=== PATIENT | female | born 1960 | race American Indian/Alaskan Native ===

== ENCOUNTER 2021-02-05 06:04 | Emergency (ER) | payer OTHER ==
[2021-02-05] MEDS ORDERED: dexAMETHasone 4 MG/ML VIAL IM ONE (08:10)
--- NOTE | 2021-02-05 08:25 | Emergency Department Report ---
ED General Adult HPI - General Chief complaint: Dental/Oral Stated complaint: RT SIDE FACIAL PAIN Time Seen by Provider: 02/05/21 07:41 Source: patient Mode of arrival: Ambulatory Limitations: No Limitations - History of Present Illness Initial comments: 60-year-old female presents to the emergency room complaining of right neck and right side facial pain. Patient reports a history of trigeminal neuralgia since 2014. She managed her flareups with carbamazepine and ibuprofen 800 mg. She took a dose at 4:30 AM but had no relief. She denies any recent falls or traumas. This is her usual trigeminal neuralgia pain. She is followed by a neurologist Dr. Bhatia. She denies chest pain, shortness of breath, fever, chills nausea vomiting. Patient is awake alert and in no apparent distress Location: face Severity scale (0 -10): 10 Consistency: constant Improves with: none Worsens with: none Associated Symptoms: denies other symptoms. denies: confusion, chest pain, cough, diaphoresis, fever/chills, headaches, loss of appetite, malaise, nausea/vomiting, rash, seizure, shortness of breath, syncope, weakness Treatments Prior to Arrival: other (MOTRIN 800MG AND CARBAMAZAPINE) - Related Data Previous Rx's Medication Instructions Recorded Last Taken Type Ibuprofen [Motrin] 800 mg PO Q8HR PRN #21 tablet 02/05/21 Unknown Rx Allergies Allergy/AdvReac Type Severity Reaction Status Date / Time amoxicillin Allergy Itching Verified 02/05/21 07:08 ED Review of Systems ROS: Stated complaint: RT SIDE FACIAL PAIN Other details as noted in HPI ED Past Medical Hx - Past Medical History Hx Hypertension: Yes Additional medical history: thyroid/ back pain/ reflux - Surgical History Additional Surgical History: tubal/ parital hysto - Medications Home Medications: Home Medications Medication Instructions Recorded Confirmed Last Taken Type Ibuprofen [Motrin] 800 mg PO Q8HR PRN #21 tablet 02/05/21 Unknown Rx ED Physical Exam - General Limitations: No Limitations General appearance: alert, in no apparent distress - Head Head exam: Present: atraumatic, normal inspection, other (No facial swelling no bruising no facial tenderness with palpation) - Eye Eye exam: Present: normal appearance, PERRL, EOMI. Absent: periorbital swelling - ENT ENT exam: Present: normal exam, mucous membranes moist, TM's normal bilaterally, other - Neck Neck exam: Present: normal inspection, full ROM. Absent: tenderness, lymphadenopathy - Respiratory Respiratory exam: Present: normal lung sounds bilaterally (No trismus). Absent: respiratory distress, wheezes, rales, rhonchi, stridor - Cardiovascular Cardiovascular Exam: Present: regular rate, normal heart sounds - Extremities Exam Extremities exam: Present: normal inspection, full ROM, normal capillary refill - Back Exam Back exam: Present: normal inspection - Neurological Exam Neurological exam: Present: alert, oriented X3, normal gait. Absent: motor sensory deficit - Psychiatric Psychiatric exam: Present: normal affect - Skin Skin exam: Present: warm, dry, intact ED Course Vital Signs 02/05/21 02/05/21 07:13 09:26 Temperature 98.4 F Pulse Rate 63 80 Respiratory 18 16 Rate Blood Pressure 135/79 Blood Pressure 134/70 [Left] O2 Sat by Pulse 100 100 Oximetry - Reevaluation(s) Reevaluation #1: 02/05/21 08:33 Ms. Gutierrez refuses tramadol states that that does not usually work for her when her pain gets this severe. Morphine 4 mg IM ordered instead of tramadol ED Medical Decision Making - Medical Decision Making This is a 60-year-old female with a history of trigeminal neuralgia since 2014 she presents documentation of her diagnosis. She is currently being treated by neurologist Dr. Bhatia. Patient is awake alert and oriented she has no neurological deficits. Right facial and right neck pain started at 4:30 AM this morning she took carbamazepine and ibuprofen 800 mg at home with no relief. She denies any recent falls or trauma. She denies chest pain no shortness of breath no upper respiratory symptoms. Normal exam. Patient states her pain is usually relieved with a dose of steroid and pain medication. She is medicated in the emergency room with morphine 4 mg IM 1 dose and Decadron 8 mg IM with relief. Patient states she has enough carbamazepine at home to take but needs a refill on Motrin 800. Critical Care Time: No Critical care attestation.: If time is entered above; I have spent that time in minutes in the direct care of this critically ill patient, excluding procedure time. ED Disposition Clinical Impression: Facial pain syndrome Disposition: - TO HOME OR SELFCARE Is pt being admited?: No Does the pt Need Aspirin: No Condition: Stable Instructions: Trigeminal Neuralgia Additional Instructions: Please follow-up with your neurologist as soon as possible. Continue with carbamazepine and ibuprofen 800 mg as prescribed for pain management. Return to the emergency room for any worsening symptoms such as inability to move your neck worsening pain chest pain shortness of breath Prescriptions: Ibuprofen [Motrin] 800 mg PO Q8HR PRN #21 tablet PRN Reason: Pain , Severe (7-10) Referrals: PRIMARY CARE, [Primary Care Provider] - 3-5 Days Forms: Work/School Release Form(ED) Time of Disposition: 09:04
[2021-02-05] MEDS: traMADol 50 MG TAB PO ONE ×2 (08:26→08:31)
[2021-02-05] MEDS ORDERED: MORPHINE 4 MG/1 ML INJ IM ONE (08:33)
[2021-02-05 09:27] VITALS: BP 134/70
== END 2021-02-05 09:27 | disposition home or self-care (01) ==
LOC: ED 06:04
DX: G50.0 Trigeminal neuralgia (principal); M54.2 Cervicalgia; I10 Essential (primary) hypertension; Z98.51 Tubal ligation status; Z88.1 Allergy status to other antibiotic agents; Z79.899 Other long term (current) drug therapy
CPT/HCPCS: 96372; 99282; J1100; J2270

== ENCOUNTER 2021-04-06 05:09 | Emergency (ER) | payer OTHER ==
[2021-04-06 05:17] VITALS: BP 118/73
[2021-04-06] MEDS ORDERED: ACETAMINOPHEN 500 MG TAB PO ONE (05:49)
[2021-04-06] MEDS ORDERED: dexAMETHasone 20 MG/5 ML VIAL IM ONE (05:49)
[2021-04-06] MEDS ORDERED: traMADol 50 MG TAB PO ONE (05:49)
--- NOTE | 2021-04-06 05:55 | Emergency Department Report ---
ED General Adult HPI - General Chief complaint: Pain General Stated complaint: TRIGEMINAL NEURALGIA Time Seen by Provider: 04/06/21 05:48 Source: patient Mode of arrival: Ambulatory Limitations: No Limitations - History of Present Illness Initial comments: Patient 61-year-old female with a history of trigeminal neuralgia. Symptoms usually controlled by coryza pain p.o. twice daily and ibuprofen 800 as needed. This exacerbation since this a.m. She does have neurology follow-up for maintenance. Cannot see them for next 2 days from now. States pain is described as 510 right jaw pain radiating to TMJ. There is no lockjaw, patient is tolerating p.o. intake there is no nausea no vomiting no stridor. There is no fever no chills. Patient is HSV negative per patient. There is 3-4 breakthroughs annually. Usually relieved by IM steroids and NSAIDs. Patient appears well-nourished well-hydrated with no acute distress at this time. - Related Data Previous Rx's Medication Instructions Recorded Last Taken Type Ibuprofen [Motrin] 800 mg PO Q8HR PRN #21 tablet 02/05/21 Unknown Rx traMADoL [Ultram] 50 mg PO Q6HR PRN #12 tablet 04/06/21 Unknown Rx Allergies Allergy/AdvReac Type Severity Reaction Status Date / Time amoxicillin Allergy Itching Verified 02/05/21 07:08 ED Review of Systems ROS: Stated complaint: TRIGEMINAL NEURALGIA Other details as noted in HPI Constitutional: denies: chills, fever Eyes: denies: eye pain, eye discharge, vision change ENT: denies: ear pain, throat pain, dental pain, congestion Respiratory: denies: cough, shortness of breath, wheezing Cardiovascular: denies: chest pain, palpitations Endocrine: no symptoms reported Gastrointestinal: denies: abdominal pain, nausea, vomiting, diarrhea Genitourinary: denies: urgency, dysuria, discharge Musculoskeletal: denies: back pain, joint swelling, arthralgia Skin: denies: rash, lesions Neurological: denies: headache, weakness, paresthesias Psychiatric: denies: anxiety, depression Hematological/Lymphatic: denies: easy bleeding, easy bruising ED Past Medical Hx - Past Medical History Previous Medical History?: Yes Hx Hypertension: Yes Additional medical history: thyroid/ back pain/ reflux - Surgical History Past Surgical History?: Yes Additional Surgical History: tubal/ parital hysto - Medications Home Medications: Home Medications Medication Instructions Recorded Confirmed Last Taken Type Ibuprofen [Motrin] 800 mg PO Q8HR PRN #21 tablet 02/05/21 Unknown Rx traMADoL [Ultram] 50 mg PO Q6HR PRN #12 tablet 04/06/21 Unknown Rx ED Physical Exam - General Limitations: No Limitations General appearance: alert, in no apparent distress - Head Head exam: Present: normocephalic, normal inspection - Eye Eye exam: Present: normal appearance, PERRL, EOMI Pupils: Present: normal accommodation - ENT ENT exam: Present: normal orophraynx, mucous membranes moist, TM's normal bilaterally, normal external ear exam, other - Expanded ENT Exam Expanded Ear exam: Present: normal external inspection Mouth exam: Absent: trismus Teeth exam: Present: normal inspection Throat exam: Positive: normal inspection - Neck Neck exam: Present: normal inspection, full ROM. Absent: tenderness, meningismus, lymphadenopathy, thyromegaly - Expanded Neck Exam Expanded Neck exam: Absent: midline deformity, tracheal deviation - Respiratory Respiratory exam: Present: normal lung sounds bilaterally. Absent: wheezes, stridor, chest wall tenderness - Cardiovascular Cardiovascular Exam: Present: regular rate, normal rhythm, normal heart sounds. Absent: systolic murmur, diastolic murmur, rubs, gallop - GI/Abdominal GI/Abdominal exam: Present: soft, normal bowel sounds. Absent: distended, tenderness, bruit, hernia - Rectal Rectal exam: Present: deferred - Extremities Exam Extremities exam: Present: normal inspection, normal capillary refill. Absent: full ROM, tenderness - Back Exam Back exam: Present: normal inspection - Neurological Exam Neurological exam: Present: alert, oriented X3, CN II-XII intact, normal gait, reflexes normal. Absent: motor sensory deficit - Expanded Neurological Exam Expanded Patient oriented to: Present: person, place, time Speech: Present: fluid speech Cranial nerves: EOM's Intact: Normal, Gag Reflex: Normal, Tongue Deviation: Normal, Nystagmus: Normal, Facial Sensation: Normal Motor strength exam: RUE: 5, LUE: 5, RLE: 5, LLE: 5 Best Eye Response ([place]): (4) open spontaneously Best Motor Response ([place]): (6) obeys commands Best Verbal Response ([place]): (5) oriented Fannie Total: 15 - Psychiatric Psychiatric exam: Present: normal affect, normal mood - Skin Skin exam: Present: warm, dry, intact, normal color. Absent: rash ED Course Vital Signs 04/06/21 04/06/21 05:14 05:16 Temperature 98.1 F 98.1 F Pulse Rate 75 74 Respiratory 18 18 Rate Blood Pressure 135/65 118/73 O2 Sat by Pulse 98 99 Oximetry ED Medical Decision Making - Medical Decision Making Patient treated with Decadron, tramadol, Tylenol. Patient has in her physician prescription for carbamazepine and ibuprofen as prescribed by neurology. Patient will follow-up with urology today or tomorrow. There is no TMJ patient is articulating well problems, no facial drooping no paralysis no weakness. No chest pain or shortness of breath. She will be DC'd to self at this time. Follow-up with neurology as scheduled. Patient verbalized agreement and understanding with discharge plan Critical care attestation.: If time is entered above; I have spent that time in minutes in the direct care of this critically ill patient, excluding procedure time. ED Disposition Clinical Impression: Trigeminal neuralgia Disposition: 01 HOME / SELF CARE / HOMELESS Is pt being admited?: No Does the pt Need Aspirin: No Condition: Stable Instructions: Trigeminal Neuralgia Additional Instructions: Medications as prescribed, follow-up with your neurologist as scheduled. Call today for earlier appointment. Return to emergency should symptoms worsen. Prescriptions: traMADoL [Ultram] 50 mg PO Q6HR PRN #12 tablet PRN Reason: Pain Referrals: JAYLON ARRIAGA MD [Staff Physician] - 3-5 Days Forms: Work/School Release Form(ED) Time of Disposition: 06:08
== END 2021-04-06 06:10 | disposition home or self-care (01) ==
LOC: ED 05:09
DX: G50.0 Trigeminal neuralgia (principal); I10 Essential (primary) hypertension; Z98.890 Other specified postprocedural states; Z79.899 Other long term (current) drug therapy
CPT/HCPCS: 96372; 99282; J1100

== ENCOUNTER 2021-04-08 11:49 | Emergency (ER) | payer OTHER ==
[2021-04-08] MEDS ORDERED: ONDANSETRON 4 MG/2 ML INJ IM ONE (12:19)
[2021-04-08] MEDS ORDERED: MORPHINE 4 MG/1 ML INJ IM ONE (12:19)
--- NOTE | 2021-04-08 12:21 | Emergency Department Report ---
ED Neuro Deficit HPI - General Chief Complaint: Pain General Stated Complaint: TRIGEMINAL Time Seen by Provider: 04/08/21 12:10 Source: patient Mode of arrival: Ambulatory Limitations: No Limitations - History of Present Illness Initial Comments: The patient was evaluated in the emergency department for symptoms described in the history of present illness. He/she was evaluated in the context of the global COVID-19 pandemic, which necessitated consideration that the patient might be at risk for infection with the virus that causes COVID-19. Institut ional protocols and algorithms that pertain to the evaluation of patients at risk for COVID-19 are in a state of rapid change based on information released by regulatory bodies including the CDC and federal and state organizations. These policies and algorithms were followed during the patient's care in the emergency department. Please note that these policies, procedures and recommendations changed on a rapid basis. 61-year-old -[place] female presents to the emergency room stating her trigeminal neuralgia is flaring up. Patient states that she was seen here Sunday in the emergency room for the same complaint. Patient states that she was given a steroid shot and sent home on tramadol and told to take Tylenol. Patient states that this is her usual presentation of her trigeminal neuralgia. Patient denies any hearing loss and no swelling of her ear or redness. Patient does state that she is followed by neurologist Dr. Dez Bhatia. She denies any nausea no vomiting no chest pain or shortness of breath. She does report she is allergic to amoxicillin. She denies any recent trauma. Patient states she has an appointment next week with her neurologist. Location: right face History of same: Yes Severity: severe Quality: burning Improves With: none Worsens With: other On Anticoagulants: No Associated Symptoms: denies: chest pain, cough, diaphoresis, fever/chills, headaches, loss of appetite, nausea/vomiting, vertigo, seizures, shortness of breath, weakness - Related Data Home Medications: Previous Rx's Medication Instructions Recorded Last Taken Type Ibuprofen [Motrin] 800 mg PO Q8HR PRN #21 tablet 02/05/21 Unknown Rx traMADoL [Ultram] 50 mg PO Q6HR PRN #12 tablet 04/06/21 Unknown Rx Allergies/Adverse Reactions: Allergies Allergy/AdvReac Type Severity Reaction Status Date / Time amoxicillin Allergy Itching Verified 02/05/21 07:08 ED Review of Systems ROS: Stated complaint: TRIGEMINAL Other details as noted in HPI Comment: All other systems reviewed and negative ED Past Medical Hx - Past Medical History Hx Hypertension: Yes Additional medical history: thyroid/ back pain/ reflux - Surgical History Additional Surgical History: tubal/ parital hysto - Social History Smoking Status: Never Smoker Substance Use Type: None - Medications Home Medications: Home Medications Medication Instructions Recorded Confirmed Last Taken Type Ibuprofen [Motrin] 800 mg PO Q8HR PRN #21 tablet 02/05/21 Unknown Rx traMADoL [Ultram] 50 mg PO Q6HR PRN #12 tablet 04/06/21 Unknown Rx ED Neuro Physical Exam - General Limitations: No Limitations General appearance: alert, other (Appears to be uncomfortable) Suspected Stroke: No - Head Head exam: Present: atraumatic, normocephalic - Eye Eye exam: Present: normal appearance - ENT ENT exam: Present: mucous membranes moist - Neck Neck exam: Present: normal inspection, full ROM - Respiratory Respiratory exam: Absent: accessory muscle use - Cardiovascular Cardiovascular Exam: Present: regular rate - Extremities Exam Extremities exam: Present: normal inspection - Back Exam Back exam: Present: normal inspection - Neurological Exam Neurological exam: Present: alert, oriented X3, CN II-XII intact, normal gait - NIHSS Assessment Interval: Baseline 1a. Level of Consciousness: alert/keenly responsive 1b. LOC Questions: answers both correctly 1c. LOC Commands: performs tasks correctly 2. Best Gaze: normal 3. Visual: no visual loss 4. Facial Palsy: normal symmetrical movement 5b. Motor Arm Right: no drift 5a. Motor Arm Left: no drift 6a. Motor Leg Left: no drift 6b. Motor Leg Right: no drift 7. Limb Ataxia: absent 8. Sensory: normal 9. Best Language: no aphasia 10. Dysarthria: normal 11. Extinction/Inattention: no abnormality Total Score: 0 Stroke Severity: No Stroke Symptoms - Psychiatric Psychiatric exam: Present: normal affect, normal mood - Skin Skin exam: Present: warm, dry, intact, normal color. Absent: rash ED Course Vital Signs 04/08/21 04/08/21 11:54 12:15 Temperature 97.2 F L Pulse Rate 79 68 Respiratory 22 16 Rate Blood Pressure 181/121 143/82 O2 Sat by Pulse 98 100 Oximetry - Medical Decision Making 61-year-old -[place] female presents to the emergency room stating her trigeminal neuralgia is flaring up. Patient states that she was seen here Sunday in the emergency room for the same complaint. Patient states that she was given a steroid shot and sent home on tramadol and told to take Tylenol. Patient states that this is her usual presentation of her trigeminal neuralgia. Patient denies any hearing loss and no swelling of her ear or redness. Patient does state that she is followed by neurologist Dr. Dez Bhatia. She denies any nausea no vomiting no chest pain or shortness of breath. She does report she is allergic to amoxicillin. She denies any recent trauma. Patient states she has an appointment next week with her neurologist. Patient will be given morphine 4 mg IM and Zofran 4 mg IM. Patient is instructed to continue with her carbamazepine and her ibuprofen 800. Discussed with patient to try calling her neurologist to see if she can get in earlier. Critical care attestation.: If time is entered above; I have spent that time in minutes in the direct care of this critically ill patient, excluding procedure time. ED Disposition Clinical Impression: Trigeminal neuralgia Disposition: 01 HOME / SELF CARE / HOMELESS Is pt being admited?: No Does the pt Need Aspirin: No Condition: Stable Instructions: Trigeminal Neuralgia, Neuropathic Pain Additional Instructions: Please continue with your preventive pain your ibuprofen 800 and your tramadol. Call your neurologist and see if he can be seen earlier. Return back to the emergency room if any worsening or new symptoms. Referrals: Dez Barajas [Other] - 3-5 Days Forms: Work/School Release Form(ED) Time of Disposition: 12:38
[2021-04-08 13:12] VITALS: BP 134/73
== END 2021-04-08 13:12 | disposition home or self-care (01) ==
LOC: ED 11:49
DX: G50.0 Trigeminal neuralgia (principal); I10 Essential (primary) hypertension; Z88.1 Allergy status to other antibiotic agents; Z79.899 Other long term (current) drug therapy
CPT/HCPCS: 96372; 99282; J2270; J2405

== ENCOUNTER 2021-04-13 05:45 | Emergency (ER) | payer OTHER ==
[2021-04-13] MEDS ORDERED: BACLOFEN 10 MG TAB PO ONE (06:51)
[2021-04-13] MEDS ORDERED: oxyCODONE /ACETAMINOPHEN 5-325MG TAB PO ONE (06:51)
[2021-04-13] MEDS ORDERED: predniSONE 20 MG TAB PO ONE (06:53)
[2021-04-13] MEDS ORDERED: KETOROLAC 30 MG/1 ML INJ IM ONE (06:57)
--- NOTE | 2021-04-13 06:57 | Emergency Department Report ---
ED General Adult HPI - General Chief complaint: Neuro Symptoms/Deficit Stated complaint: TRIGEMINAL NEURALIA PUI?: No Time Seen by Provider: 04/13/21 06:42 Source: patient Mode of arrival: Ambulatory Limitations: No Limitations - History of Present Illness Initial comments: CC: "My face hurts." HPI: This is a 61 yo female with hx of trigeminal neuralgiaAnd thyroid disease who presents with right facial pain for 2 days. She has had similar pain intermittently since diagnosis of trigeminal neuralgia in 2014. She is followed by a PCP and neurologist. She takes carbamazepine and Ibuprofen to address her condition. IN the ED, she requires morphine and steroids for rescue therapy. -: Gradual Location: face (right face) Severity scale (0 -10): 10 Quality: sharp Consistency: constant Worsens with: other (worse when she speaks) Associated Symptoms: denies other symptoms Treatments Prior to Arrival: none - Related Data Previous Rx's Medication Instructions Recorded Last Taken Type Ibuprofen [Motrin] 800 mg PO Q8HR PRN #21 tablet 02/05/21 Unknown Rx traMADoL [Ultram] 50 mg PO Q6HR PRN #12 tablet 04/06/21 Unknown Rx Baclofen [Lioresal] 10 mg PO TID 7 Days #21 tab 04/13/21 Unknown Rx Prednisone [predniSONE 10 mg 10 mg PO .TAPER #1 tab.ds.pk 04/13/21 Unknown Rx (6-Day Pack, 21 Tabs)] Allergies Allergy/AdvReac Type Severity Reaction Status Date / Time amoxicillin Allergy Itching Verified 04/13/21 06:37 ED Review of Systems ROS: Stated complaint: TRIGEMINAL NEURALIA Other details as noted in HPI Comment: All other systems reviewed and negative Constitutional: denies: chills, diaphoresis, malaise ENT: denies: throat pain, dental pain Respiratory: denies: cough Cardiovascular: denies: chest pain Gastrointestinal: denies: abdominal pain, nausea, vomiting ED Past Medical Hx - Past Medical History Previous Medical History?: Yes Hx Hypertension: Yes Additional medical history: thyroid/ back pain/ reflux, trigeminal neuralgia - Surgical History Past Surgical History?: Yes Additional Surgical History: tubal/ parital hysto - Social History Smoking Status: Never Smoker Substance Use Type: None - Medications Home Medications: Home Medications Medication Instructions Recorded Confirmed Last Taken Type Ibuprofen [Motrin] 800 mg PO Q8HR PRN #21 tablet 02/05/21 Unknown Rx traMADoL [Ultram] 50 mg PO Q6HR PRN #12 tablet 04/06/21 Unknown Rx Baclofen [Lioresal] 10 mg PO TID 7 Days #21 tab 04/13/21 Unknown Rx Prednisone [predniSONE 10 mg 10 mg PO .TAPER #1 tab.ds.pk 04/13/21 Unknown Rx (6-Day Pack, 21 Tabs)] ED Physical Exam - General Limitations: No Limitations General appearance: alert, in no apparent distress, other (appears uncomfortable when attempting to speak) - Head Head exam: Present: atraumatic, normocephalic - Eye Eye exam: Present: normal appearance - ENT ENT exam: Present: mucous membranes moist - Neck Neck exam: Present: normal inspection - Respiratory Respiratory exam: Present: normal lung sounds bilaterally. Absent: respiratory distress, wheezes, rales, rhonchi - Cardiovascular Cardiovascular Exam: Present: regular rate, normal rhythm, normal heart sounds. Absent: systolic murmur, diastolic murmur, rubs, gallop - GI/Abdominal GI/Abdominal exam: Present: soft, normal bowel sounds - Extremities Exam Extremities exam: Present: normal inspection - Neurological Exam Neurological exam: Present: alert, oriented X3 - Psychiatric Psychiatric exam: Present: normal affect, normal mood - Skin Skin exam: Present: warm, dry, intact, normal color. Absent: rash ED Medical Decision Making - Medical Decision Making Is a 61-year-old female who has had recurrent right facial pain since 2014 due to trigeminal neuralgia. She received multiple medications in emergency department including p.o. prednisone p.o. baclofen p.o. Percocet, IM ketorolac. I'll prescribe prednisone and baclofen. Patient is recommended follow-up with her neurologist. This is her third ED encounter at this facility within the last week Critical care attestation.: If time is entered above; I have spent that time in minutes in the direct care of this critically ill patient, excluding procedure time. ED Disposition Clinical Impression: Trigeminal neuralgia Disposition: 01 HOME / SELF CARE / HOMELESS Is pt being admited?: No Does the pt Need Aspirin: No Condition: Stable Instructions: Trigeminal Neuralgia, Neuropathic Pain Additional Instructions: Please see your primary neurologist as soon as possible. Prescriptions: Baclofen [Lioresal] 10 mg PO TID 7 Days #21 tab Prednisone [predniSONE 10 mg (6-Day Pack, 21 Tabs)] 10 mg PO .TAPER #1 tab.ds.pk
[2021-04-13 07:00] VITALS: BP 121/74
== END 2021-04-13 07:35 | disposition home or self-care (01) ==
LOC: ED 05:45
DX: G50.0 Trigeminal neuralgia (principal); I10 Essential (primary) hypertension; Z98.890 Other specified postprocedural states; Z79.899 Other long term (current) drug therapy; Z88.1 Allergy status to other antibiotic agents
CPT/HCPCS: 96372; 99282; J1885; J7512

== ENCOUNTER 2021-04-30 05:37 | Emergency (ER) | payer OTHER ==
[2021-04-30 05:59] VITALS: BP 105/65
[2021-04-30] MEDS ORDERED: HYDROcodone/ACETAMINOPHEN 5-325 MG TAB PO ONE (07:45)
[2021-04-30] MEDS ORDERED: dexAMETHasone 20 MG/5 ML VIAL IM ONE (07:46)
--- NOTE | 2021-04-30 07:48 | Emergency Department Report ---
ED General Adult HPI - General Chief complaint: Pain General Stated complaint: TRIGEMINAL NEURALGIA Time Seen by Provider: 04/30/21 07:34 Source: patient Mode of arrival: Ambulatory Limitations: No Limitations - History of Present Illness Initial comments: 61-year-old female with a past medical history of thyroid disease and trigeminal neuralgia presents to the ER today with complaints of flareup of her trigeminal neuralgia. Patient states that her pain flared up 3 days ago. Typically on the right side of her face, sharp in nature and associated with a headache. She states that this flareup is typical of her trigeminal neuralgia. She does have a neurologist, delfino Bhatia, she states that she called the office, but they did not return her call. Reviewed patient past visits, this is patient's fourth visit to the ER within the month for similar symptoms. According to her last visit which she is when she was seen on April 08, patient was supposed to follow-up with her neurologist 1 week after, but patient states that she never had an appointment with her neurologist, she tried to call her neurologist but they never called her back and she actually admitted that she is actually looking for a new neurologist. She typically takes carbamazepine and ibuprofen for the pain but she states that has not been helping since . She denies any vision change, speech changes, fever, chills, neck pain, chest pain, shortness of breath or any additional symptoms at this time. Complaint: Flare up of trigeminal neuralgia -: year(s) - Related Data Previous Rx's Medication Instructions Recorded Last Taken Type Ibuprofen [Motrin] 800 mg PO Q8HR PRN #21 tablet 02/05/21 Unknown Rx traMADoL [Ultram] 50 mg PO Q6HR PRN #12 tablet 04/06/21 Unknown Rx Prednisone [predniSONE 10 mg 10 mg PO .TAPER #1 tab.ds.pk 04/13/21 Unknown Rx (6-Day Pack, 21 Tabs)] Acetaminophen/Codeine [Tylenol 1 tab PO Q6H PRN #10 tab 04/30/21 Unknown Rx /Codeine # 3 tab] Allergies Allergy/AdvReac Type Severity Reaction Status Date / Time amoxicillin Allergy Itching Verified 04/13/21 07:29 ED Review of Systems ROS: Stated complaint: TRIGEMINAL NEURALGIA Other details as noted in HPI Comment: All other systems reviewed and negative Constitutional: denies: chills, fever Eyes: denies: eye pain, eye discharge, vision change ENT: denies: ear pain, throat pain, dental pain, hearing loss, epistaxis, congestion Respiratory: denies: cough, shortness of breath, wheezing Cardiovascular: denies: chest pain, palpitations, dyspnea on exertion, edema, syncope, paroxysmal nocturnal dyspnea Gastrointestinal: denies: abdominal pain, nausea, diarrhea, constipation, hematemesis, melena, hematochezia Genitourinary: denies: urgency, dysuria, frequency, hematuria, discharge, abnormal menses, dyspareunia Musculoskeletal: denies: back pain, joint swelling, arthralgia Skin: denies: rash, lesions, change in color, change in hair/nails Neurological: headache, other (Right-sided facial pain). denies: numbness, paresthesias, confusion, abnormal gait, vertigo Psychiatric: denies: anxiety, depression, auditory hallucinations, visual hallucinations, homicidal thoughts, suicidal thoughts Hematological/Lymphatic: denies: easy bleeding, easy bruising ED Past Medical Hx - Past Medical History Previous Medical History?: Yes Hx Hypertension: Yes Additional medical history: thyroid/ back pain/ reflux, trigeminal neuralgia - Surgical History Past Surgical History?: Yes Additional Surgical History: tubal/ parital hysto - Social History Smoking Status: Never Smoker Substance Use Type: None - Medications Home Medications: Home Medications Medication Instructions Recorded Confirmed Last Taken Type Ibuprofen [Motrin] 800 mg PO Q8HR PRN #21 tablet 02/05/21 Unknown Rx traMADoL [Ultram] 50 mg PO Q6HR PRN #12 tablet 04/06/21 Unknown Rx Prednisone [predniSONE 10 mg 10 mg PO .TAPER #1 tab.ds.pk 04/13/21 Unknown Rx (6-Day Pack, 21 Tabs)] Acetaminophen/Codeine [Tylenol 1 tab PO Q6H PRN #10 tab 04/30/21 Unknown Rx /Codeine # 3 tab] ED Physical Exam - General Limitations: No Limitations General appearance: alert, in no apparent distress - Head Head exam: Present: atraumatic, normocephalic, normal inspection - Eye Eye exam: Present: normal appearance, PERRL, EOMI Pupils: Present: normal accommodation - ENT ENT exam: Present: normal exam, mucous membranes moist, TM's normal bilaterally, other (Mild tenderness to palpation to the right face. No swelling, no erythema, no bruising, no facial weakness and sensation of the right face normal.) - Neck Neck exam: Present: normal inspection, full ROM - Respiratory Respiratory exam: Present: normal lung sounds bilaterally. Absent: respiratory distress, wheezes, rales, rhonchi - Cardiovascular Cardiovascular Exam: Present: regular rate, normal rhythm, normal heart sounds - Neurological Exam Neurological exam: Present: alert, oriented X3, CN II-XII intact, normal gait - Psychiatric Psychiatric exam: Present: normal affect, normal mood - Skin Skin exam: Present: intact ED Course Vital Signs 04/30/21 05:58 Temperature 98.3 F Pulse Rate 65 Respiratory 18 Rate Blood Pressure 105/65 O2 Sat by Pulse 100 Oximetry ED Medical Decision Making - Medical Decision Making 61-year-old female with a past medical history of thyroid disease and trigeminal neuralgia presents to the ER today with complaints of flareup of her trigeminal neuralgia. Patient states that her pain flared up 3 days ago. Typically on the right side of her face, sharp in nature and associated with a headache. She states that this flareup is typical of her trigeminal neuralgia. She does have a neurologist, delfino Bhatia, she states that she called the office, but they did not return her call. Reviewed patient past visits, this is patient's fourth visit to the ER within the month for similar symptoms. According to her last visit which she is when she was seen on April 08, patient was supposed to follow-up with her neurologist 1 week after, but patient states that she never had an appointment with her neurologist, she tried to call her neurologist but they never called her back and she actually admitted that she is actually looking for a new neurologist. She typically takes carbamazepine and ibuprofen for the pain but she states that has not been helping since . She denies any vision c hange, speech changes, fever, chills, neck pain, chest pain, shortness of breath or any additional symptoms at this time. 0756: Patient is well-appearing, nontoxic and not in any acute distress. She is awake alert oriented x3, with no neuro deficits on exam, and a normal gait. Her vital signs are stable. Informed patient that this is her fourth visit within the month for the same symptoms. Informed that this is a chronic problem and the ER does not typically treat chronic pain. She has not followed up with her neurologist, Dr. Dez Bhatia since she was seen on April 08. The ER. She states that she was looking for a new neurologist. Informed patient that we will give her a dose of hydrocodone here, and she will get a prescription for 10 tablets of Tylenol 3 to take in addition to her usual medication morphine and ibuprofen and she will be given referral to [facility] since she is not looking for a new neurologist to follow-up with. Informed patient that it i s important that she makes an appointment with a neurologist to continue treating her trigeminal neuralgia and to see if there is any changes need to be made to her chronic medications. Patient expressed understanding of all instructions and agree with plan. Patient stable at time of discharge. Critical care attestation.: If time is entered above; I have spent that time in minutes in the direct care of this critically ill patient, excluding procedure time. ED Disposition Clinical Impression: Trigeminal neuralgia of right side of face, Chronic pain Disposition: HOME / SELF CARE / HOMELESS Is pt being admited?: No Does the pt Need Aspirin: No Condition: Stable Instructions: Chronic Pain, Adult, Trigeminal Neuralgia Additional Instructions: Recommend he continue carbamazepine and ibuprofen. Take the Tylenol threes for additional pain control. It is most important that you follow-up with the neurologist listed on your discharge instructions, since you are looking for a new neurologist to continue treating your trigeminal neuralgia. Return to the ER if your symptoms worsens in any way. Prescriptions: Acetaminophen/Codeine [Tylenol /Codeine # 3 tab] 1 tab PO Q6H PRN #10 tab PRN Reason: Pain , Severe (7-10) Referrals: [facility] [Provider Group] - 3-5 Days ( At: [address], [place] [address] ) Time of Disposition: 07:47 Print Language: CHILEAN
== END 2021-04-30 13:38 | disposition home or self-care (01) ==
LOC: ED 05:37
DX: G50.0 Trigeminal neuralgia (principal); G89.29 Other chronic pain; I10 Essential (primary) hypertension; Z88.1 Allergy status to other antibiotic agents; Z79.899 Other long term (current) drug therapy
CPT/HCPCS: 99282; J1100